=== PATIENT | female | born 1945 | race Native Hawaiian/Other Pacific Islander ===

== ENCOUNTER 2017-05-13 11:22 | Outpatient (CLI) | payer OTHER | END 2017-05-13 18:57 | disposition home or self-care (01) | LOC: MAMMO 11:22 | DX: Z12.31 Encounter for screening mammogram for malignant neoplasm of breast (principal) ==

== ENCOUNTER 2020-08-22 12:14 | Outpatient (CLI) | payer OTHER | END 2020-08-22 19:23 | disposition home or self-care (01) | LOC: RAD 12:14 | PROVIDERS: ATTEND Internal Medicine | DX: M54.89 Other dorsalgia (principal) ==

== ENCOUNTER 2021-02-03 09:16 | Outpatient (CLI) | payer OTHER | END 2021-02-03 22:07 | disposition home or self-care (01) | LOC: RAD 09:16 | PROVIDERS: ATTEND Internal Medicine | DX: N95.8 Other specified menopausal and perimenopausal disorders (principal) ==

== ENCOUNTER 2022-09-06 17:34 | Emergency (ER) | payer OTHER ==
[~2022-09-06] VITALS: Ht 172.7 cm; Wt 81.2 kg
[2022-09-06 18:17] LABS: PLATELET COUNT 173 K/uL (152-353)
[2022-09-06 18:24] LABS: POTASSIUM 4.1 mmol/L (3.6-5.2)
== END 2022-09-06 22:10 | disposition short-term general hospital (02) ==
LOC: ED 17:34
PROVIDERS: Emergency Medicine Emergency Medical Services
DX: S32.512A Fracture of superior rim of left pubis, initial encounter for closed fracture (principal); S32.592A Other specified fracture of left pubis, initial encounter for closed fracture; S32.19XA Other fracture of sacrum, initial encounter for closed fracture; W01.0XXA Fall on same level from slipping, tripping and stumbling without subsequent striking against object, initial encounter; Y92.89 Other specified places as the place of occurrence of the external cause
CPT/HCPCS: 80048; 85027; 93005; 96360; 96374; 96375; 99284; J2270; J2405

== ENCOUNTER 2022-09-10 15:39 | Inpatient (IN) | payer OTHER | END 2022-09-30 14:01 | disposition home health service (06) | LOC: PAVB 15:39 | PROVIDERS: ADMIT Family Medicine; ATTEND Family Medicine | DX: S32.512D Fracture of superior rim of left pubis, subsequent encounter for fracture with routine healing (principal); S32.110D Nondisplaced Zone I fracture of sacrum, subsequent encounter for fracture with routine healing; S42.035D Nondisplaced fracture of lateral end of left clavicle, subsequent encounter for fracture with routine healing; M25.512 Pain in left shoulder; M62.81 Muscle weakness (generalized); R26.2 Difficulty in walking, not elsewhere classified; R41.841 Cognitive communication deficit; Z74.1 Need for assistance with personal care | CPT/HCPCS: 87081; G0283-GO ==

== ENCOUNTER 2022-10-28 15:18 | Outpatient (CLI) | payer OTHER | END 2022-10-28 22:31 | disposition home or self-care (01) | LOC: RAD 15:18 | PROVIDERS: ATTEND Nurse Practitioner Family | DX: R05.3 Chronic cough (principal) ==

== ENCOUNTER 2022-11-29 14:04 | Outpatient (CLI) | payer OTHER | END 2022-11-29 19:00 | disposition home or self-care (01) | LOC: RAD 14:04 | PROVIDERS: ATTEND Internal Medicine | DX: M54.59 Other low back pain (principal) ==

== ENCOUNTER 2022-12-15 12:05 | Outpatient (CLI) | payer OTHER | END 2022-12-15 19:04 | disposition home or self-care (01) | LOC: MRI 12:05 | PROVIDERS: ATTEND Physician Assistant | DX: M54.59 Other low back pain (principal) ==

== ENCOUNTER 2023-02-09 10:27 | Outpatient (CLI) | payer OTHER | END 2023-02-09 19:20 | disposition home or self-care (01) | LOC: LAB 10:27 | PROVIDERS: ATTEND Internal Medicine | DX: N18.9 Chronic kidney disease, unspecified (principal); E86.0 Dehydration; F03.90 Unspecified dementia, unspecified severity, without behavioral disturbance, psychotic disturbance, mood disturbance, and anxiety; R42 Dizziness and giddiness; R30.0 Dysuria; R31.9 Hematuria, unspecified; E11.9 Type 2 diabetes mellitus without complications | CPT/HCPCS: 81000; 87077; 87086; 87088; 87186 ==

== ENCOUNTER 2023-03-12 08:00 | Inpatient (IN) | payer OTHER ==
[~2023-03-12] VITALS: Ht 172.7 cm; Wt 77.6 kg
[2023-03-12 08:00] VITALS: BP 190/72; TEMP 99.7
[2023-03-12 08:51] LABS: PLATELET COUNT 239 K/uL (152-353)
[2023-03-12 09:09] LABS: PARTIAL THROMBOPLASTIN TIME 27.7 SECONDS (23.9-36.7)
[2023-03-12 09:38] LABS: POTASSIUM 3.7 mmol/L (3.6-5.2)
[2023-03-12 10:45] VITALS: BP 187/66; TEMP 98.4; Ht 172.7 cm; Wt 77.6 kg
[2023-03-12 12:00] VITALS: BP 187/66; TEMP 98.4
[2023-03-12] MEDS ORDERED: ACET-689 PO (12:53)
[2023-03-12] MEDS ORDERED: MEMA10TA2 PO (12:54)
[2023-03-12] MEDS ORDERED: AMLODIPINE BESYLATE PO (12:54)
[2023-03-12] MEDS ORDERED: DONEPEZIL HYDRO10 MG PO (12:55)
[2023-03-12] MEDS ORDERED: DIOVAN HCT320 MG/25 PO (12:59)
[2023-03-12] MEDS ORDERED: GABA100C2 PO (13:01)
[2023-03-12] MEDS ORDERED: FENOFIBRATE160 MG PO (13:01)
[2023-03-12] MEDS ORDERED: SERT100T PO (13:02)
[2023-03-12] MEDS ORDERED: VITAMIN B-121000 MCG PO (13:02)
[2023-03-12] MEDS ORDERED: OMEPRAZOLE DR20 MG PO (13:04)
[2023-03-12] MEDS ORDERED: CLARITIN10 M1 PO (13:04)
[2023-03-12] MEDS ORDERED: KLOR-CON M1010 MEQ PO (13:05)
[2023-03-12] MEDS ORDERED: LOPRESSOR100 MG PO (13:05)
[2023-03-12] MEDS ORDERED: CHLORDIAZEPOXID PO (13:11)
[2023-03-12] MEDS ORDERED: DICYCLOMINE HYD20 MG PO (13:13)
[2023-03-12 16:25] VITALS: BP 165/50; TEMP 99.3
[2023-03-12 19:36] VITALS: BP 189/69; TEMP 99.1
[2023-03-13] VITALS: BP 165/50; TEMP 98.1
[2023-03-13 04:00] VITALS: BP 155/55; TEMP 98.2
[2023-03-13 05:28] LABS: PLATELET COUNT 141 K/uL (152-353)
[2023-03-13 05:32] LABS: POTASSIUM 3.3 mmol/L (3.6-5.2)
[2023-03-13 12:26] VITALS: BP 145/51; TEMP 97.9
[2023-03-13 16:29] VITALS: BP 155/46; TEMP 99.5
[2023-03-13 19:34] VITALS: BP 152/45; TEMP 99.7
[2023-03-13 23:45] VITALS: BP 157/45; TEMP 99.7
[2023-03-14 03:36] VITALS: BP 174/56; TEMP 99.2
[2023-03-14 07:57] VITALS: BP 176/64; TEMP 98.1
[2023-03-14 11:55] VITALS: BP 164/66; TEMP 97.9
[2023-03-14] MEDS ORDERED: VALSARTAN80 MG PO (14:21)
[2023-03-14 16:00] VITALS: BP 161/69; TEMP 98.2
[2023-03-14 20:00] VITALS: BP 162/55; TEMP 99.8
[2023-03-15 04:00] VITALS: BP 163/58; TEMP 99.3
[2023-03-15 08:00] VITALS: BP 160/56; TEMP 98.9
[2023-03-15 12:00] VITALS: BP 150/52; TEMP 98.9
== END 2023-03-15 14:15 | DRG 93 ==
LOC: ED 08:00 → MED/SURG 08:56 → UNDODEPER 03-14 10:45 → MED/SURG 03-15 14:15
PROVIDERS: Family Medicine; ADMIT Internal Medicine; ATTEND Internal Medicine
DX: G92.8 Other toxic encephalopathy (principal); I10 Essential (primary) hypertension; K58.8 Other irritable bowel syndrome; R41.82 Altered mental status, unspecified; R53.1 Weakness; R53.83 Other fatigue; R26.81 Unsteadiness on feet; E11.9 Type 2 diabetes mellitus without complications; Z91.81 History of falling
CPT/HCPCS: 36415; 80053; 80307; 81000; 82550; 82948; 83735; 83880; 84443; 84484; 85027; 85610; 85730; 87040; 93005; 96360; 96361; 99284; J2405; J3475

== ENCOUNTER 2023-03-15 15:51 | Inpatient (IN) | payer OTHER ==
[~2023-03-15 15:51] MED LIST: ACET-689 PO; AMLODIPINE BESYLATE PO; CHLORDIAZEPOXID PO; CLARITIN10 M1 PO; DICYCLOMINE HYD20 MG PO; DIOVAN HCT320 MG/25 PO; DONEPEZIL HYDRO10 MG PO; FENOFIBRATE160 MG PO; GABA100C2 PO; KLOR-CON M1010 MEQ PO; LOPRESSOR100 MG PO; MEMA10TA2 PO; OMEPRAZOLE DR20 MG PO; SERT100T PO; VALSARTAN80 MG PO; VITAMIN B-121000 MCG PO
== END 2023-04-05 09:22 | disposition still patient (30) ==
LOC: PAVC 15:51
PROVIDERS: ADMIT Internal Medicine; ATTEND Internal Medicine
DX: G92.8 Other toxic encephalopathy (principal); M62.81 Muscle weakness (generalized); R26.2 Difficulty in walking, not elsewhere classified; R27.9 Unspecified lack of coordination; Z74.1 Need for assistance with personal care; R41.841 Cognitive communication deficit
CPT/HCPCS: 82272; 83630; 87081; 87324; 87328; 87329; 87449; 87507

== ENCOUNTER 2023-03-17 21:55 | Outpatient (CLI) | payer OTHER | END 2023-03-17 22:11 | disposition home or self-care (01) | LOC: LAB 21:55 | PROVIDERS: ATTEND Internal Medicine | DX: R19.7 Diarrhea, unspecified (principal); D84.89 Other immunodeficiencies | CPT/HCPCS: 82272; 83630; 87324; 87328; 87329; 87449; 87507 ==

== ENCOUNTER 2023-06-17 10:25 | Outpatient (CLI) | payer OTHER | END 2023-06-17 19:48 | disposition home or self-care (01) | LOC: RAD 10:25 | PROVIDERS: ATTEND Internal Medicine | DX: K59.00 Constipation, unspecified (principal) ==

== ENCOUNTER 2023-06-20 07:50 | Outpatient (CLI) | payer OTHER ==
[2023-06-20 09:23] LABS: POTASSIUM 4.2 mmol/L (3.6-5.2)
== END 2023-06-20 19:10 | disposition home or self-care (01) ==
LOC: LAB 07:50
PROVIDERS: ATTEND Internal Medicine
DX: D64.89 Other specified anemias (principal); E11.9 Type 2 diabetes mellitus without complications; I10 Essential (primary) hypertension; G92.8 Other toxic encephalopathy
CPT/HCPCS: 80048; 83735